=== PATIENT | female | born 1935 | race Caucasian/White ===

== ENCOUNTER 2018-10-15 17:55 | Inpatient (IN) | payer MEDICARE, OTHER ==
[~2018-10-15] VITALS: Ht 157.5 cm; Wt 43.9 kg
[~2018-10-15 17:55] MED LIST: NO HOME MEDICATIONS; ZITHROMAX 250M250 MG PO
[2018-10-15 18:58] LABS: BASO % 0.3 % (0.0-2.0); EOS % 0.1 % (0-4.0); GRAN # 8.6 (1.4-6.5); HEMOGLOBIN 11.9 g/dl (12.5-16.0); LYMPH % 9.6 % (20.0-51.0); MEAN CELL VOLUME 93 fl (80.0-100.0); MEAN CORPUSCULAR HEMOGLOBIN 32 pg (27.0-31.0); MEAN CORPUSCULAR HGB CONC 34 g/dl (33.0-37.0); MEAN PLATELET VOLUME 9.6 fl (7.4-10.4); MONO # 0.7 (0.1-0.6); MONO % 7.1 % (1.7-9.3); PLATELET COUNT 349 K/mm3 (130-400); RED BLOOD COUNT 3.78 M/mm3 (4.10-5.30); REDCELL DISTRIBUTION WIDTH-CV 12.4 % (11.5-14.5)
[2018-10-15 19:05] LABS: HEMATOCRIT 35.3 % (37.0-47.0)
[2018-10-15 19:08] LABS: ALBUMIN 3.2 gm/dL (3.5-5.0); BILIRUBIN,TOTAL 0.9 mg/dL (0.0-1.0); CALCIUM 8.8 mg/dL (8.4-10.2); CREATININE, serum 0.6 mg/dL (0.52-1.25); PHOSPHOROUS 2.4 mg/dL (2.5-4.5); POTASSIUM 4.3 mmol/L (3.4-5.0); TOTAL PROTEIN 6.6 gm/dL (6.4-8.2)
[2018-10-15 22:12] VITALS: BP 106/59; PULSE 90; TEMP 97.7
--- NOTE | 2018-10-15 23:46 | NUR ---
PT IS COMBATIVE WHILE PRVIDING PT CARE. FAMILY MEMBERS HELP WITH CARE. NO PAIN NOTED. NO NEEDS AT THIS TIME. CALL LIGHT IN REACH. BED ALARM ON.
--- NOTE | 2018-10-15 23:55 | NUR ---
PT RESTING IN BED A+OX4. NO PAIN. SHIFT ASSESSMENT COMEPLE. NO SOA. NO NEEDS AT THIS TIME. REPORT GIVEN TO JANUSZ MIRANDA
[2018-10-16 00:13] VITALS: BP 96/38; PULSE 92; TEMP 97.8
--- NOTE | 2018-10-16 00:30 | NUR ---
Patient report received from JANUSZ Young. Patient seen resting comfortably in bed. No needs observed at this time.
[2018-10-16 01:56] LABS: COLLECTION METHOD CLEAN CATCH
[2018-10-16 03:28] LABS: MUCOUS Present /lpf; PH 7 (5-8); SQUAMOUS EPITHELIAL 0-2 /hpf; URINE APPEARANCE Clear; URINE BACTERIA Rare /hpf; URINE BILIRUBIN Negative (NEGATIVE); URINE BLOOD Negative (NEGATIVE); URINE COLOR Straw; URINE GLUCOSE Negative (NEGATIVE); URINE KETONE Negative (NEGATIVE); URINE LEUKOCYTE ESTERASE Negative (NEGATIVE); URINE NITRATE Negative (NEGATIVE); URINE PROTEIN(semi-quant) Negative (NEGATIVE); URINE RBC 0-2 /hpf; URINE UROBILINOGEN Negative (NEGATIVE)
[2018-10-16 05:07] VITALS: BP 102/48; PULSE 82; TEMP 97.2
[2018-10-16 06:16] LABS: BASO % 0.2 % (0.0-2.0); EOS % 0.4 % (0-4.0); GRAN # 6.1 (1.4-6.5); GRAN % 73.4 % (42.2-75.2); HEMOGLOBIN 11.7 g/dl (12.5-16.0); LYMPH # 1.6 (1.2-3.4); LYMPH % 18.9 % (20.0-51.0); MEAN CELL VOLUME 94 fl (80.0-100.0); MEAN CORPUSCULAR HEMOGLOBIN 31 pg (27.0-31.0); MEAN CORPUSCULAR HGB CONC 33 g/dl (33.0-37.0); MEAN PLATELET VOLUME 9.6 fl (7.4-10.4); MONO # 0.5 (0.1-0.6); MONO % 6.5 % (1.7-9.3); PLATELET COUNT 357 K/mm3 (130-400); RED BLOOD COUNT 3.79 M/mm3 (4.10-5.30); REDCELL DISTRIBUTION WIDTH-CV 12.5 % (11.5-14.5)
[2018-10-16 06:21] LABS: CALCIUM 8.4 mg/dL (8.4-10.2); CHOLESTEROL RISK RATIO 3.6; CREATININE, serum 0.52 mg/dL (0.52-1.25); POTASSIUM 3.9 mmol/L (3.4-5.0)
[2018-10-16 06:24] LABS: HEMATOCRIT 35.7 % (37.0-47.0)
[2018-10-16 07:29] VITALS: BP 108/50; PULSE 86; TEMP 97.9
--- NOTE | 2018-10-16 11:00 | NUR ---
Patient has been sleeping most the monrning. She has a cough but it is dry. No sputum sample obtained. She is weak and needs some help getting out of bed. She is forgetful and needs several reminders. Denies pain or nausea. Explained several times the free water restriction but needs reminders. Explained she can do gatorade instead of juice because she did not want anymore juice. No other changes at this time. Call light within reach. Daughter is at bedside.
[2018-10-16 11:49] VITALS: BP 100/64; PULSE 85; TEMP 98
[2018-10-16 16:00] VITALS: BP 102/50; PULSE 102; TEMP 98
--- NOTE | 2018-10-16 18:52 | NUR ---
Patient has been doing well this afternoon. Her daughter stayed with her most the day. She has been helping her order meals. Patient is hoping to go home tomorrow. Explained that she has been doing a lot better first. Continues to deny pain and nausea. no other changes at this time. Call light within reach.
[2018-10-16 20:49] VITALS: BP 131/58; PULSE 98; TEMP 98.6
[2018-10-17 04:39] VITALS: BP 115/63; PULSE 79; TEMP 97.5
--- NOTE | 2018-10-17 06:22 | NUR ---
UP WITH MINIMAL ASSIST. NO c/o N/V. PT DENIED NEED FOR PAIN MEDS. NO c/o DYSPNEA.
[2018-10-17 06:32] LABS: BASO % 0.4 % (0.0-2.0); EOS # 0.1 (0.0-0.7); GRAN # 5.1 (1.4-6.5); GRAN % 69.1 % (42.2-75.2); HEMOGLOBIN 10.8 g/dl (12.5-16.0); LYMPH # 1.6 (1.2-3.4); LYMPH % 21.8 % (20.0-51.0); MEAN CELL VOLUME 95 fl (80.0-100.0); MEAN CORPUSCULAR HEMOGLOBIN 31 pg (27.0-31.0); MEAN CORPUSCULAR HGB CONC 33 g/dl (33.0-37.0); MEAN PLATELET VOLUME 9.7 fl (7.4-10.4); MONO # 0.5 (0.1-0.6); PLATELET COUNT 329 K/mm3 (130-400); RED BLOOD COUNT 3.44 M/mm3 (4.10-5.30); REDCELL DISTRIBUTION WIDTH-CV 12.5 % (11.5-14.5)
[2018-10-17 06:34] LABS: HEMATOCRIT 32.5 % (37.0-47.0)
[2018-10-17 06:52] LABS: ALBUMIN 2.3 gm/dL (3.5-5.0); BILIRUBIN,TOTAL 0.4 mg/dL (0.0-1.0); CALCIUM 8.2 mg/dL (8.4-10.2); CREATININE, serum 0.48 mg/dL (0.52-1.25); MAGNESIUM 1.8 mg/dL (1.6-2.3); POTASSIUM 3.9 mmol/L (3.4-5.0); TOTAL PROTEIN 5.1 gm/dL (6.4-8.2)
[2018-10-17 08:35] VITALS: BP 111/50; PULSE 91; TEMP 98.1
--- NOTE | 2018-10-17 09:09 | NUR ---
Patient alert and oriented, answers questions appropriately. See assessment. Lungs decreased in bases, clear in upper lobes. No cough/SOA. Inquires about discharge. States "My daughter says I can't go home, but I'm fine to go home. My daughter don't know what she is talking about". Advised patient to visit with physicians about potential discharge.
--- NOTE | 2018-10-17 11:03 | NUR ---
Initial visit; Patient thanked Poultry Dressing Worker for looking in on her and offering empathy, and keeping her in Poultry Dressing Worker's prayers.
--- NOTE | 2018-10-17 11:56 | NUR ---
SW student attended clinical rounds and followed up with patient to discuss discharge plan. Patient lives in [place] with her (Robb) and 15 year-old adoptive daughter (Sahara). Patient's is staying at [facility] currently until November and then possibly long-term. The patient does not use any DME and reports independence with ADLs. The patient receives primary care services at [facility] and believes she has seen Dr. Frank in the past but was not completely sure. The patient receives her medications from [facility] and reports no difficulties obtaining her medications. The patient has an outdated DPOA-HC completed that designates a friend (Gracia Child) but is in the process of completing an updated DPOA-HC. The patient wishes to return home but per PT/OT recommendations, may need a short SNF stay or home health. PT/OT has been ordered and hospitalist will follow up this afternoon. SW to continue to follow.
[2018-10-17 12:03] VITALS: BP 136/56; PULSE 89; TEMP 97.2
--- NOTE | 2018-10-17 14:48 | NUR ---
PT and OT have recommended patient go home with HH. TOM and TOM student met with patient and her daughter to discuss these options. Patient does not feel she needs HH but will talk with her daughter about options. TOM provided the medicare.gov HH sheet and discussed exactly what HH would provide for her. SW will check with patient after she is able to discuss with daughter.
[2018-10-17] MEDS ORDERED: OMNICEF 300MG300 MG PO (15:01)
[2018-10-17] MEDS ORDERED: ZITHROMAX500 M2 PO (15:01)
--- NOTE | 2018-10-17 15:55 | NUR ---
TOM lima met with the patient and patient's daughter to follow up about the option of Home Health Agencies. The patient was agreeable to start Home Health services with PT/OT/Skilled. After reviewing the Medicare.gov sheet of HH agencies, the patient has chosen [facility]. TOM lima left a VM for Ethan at [facility] and faxed the referral.
--- NOTE | 2018-10-17 17:01 | NUR ---
Discharge instructions reviewed with patient and family, verbalized understanding. Discharged via wheelchair to auto/home with family at 1700.
[2018-10-18 01:14] LABS: MYCOPLASMA IGM ANTIBODIES 0.18 (0.00-0.90)
--- NOTE | 2018-10-18 09:35 | NUR ---
Ethan, from [facility], contacted student to notify that they received the referral and have accepted the patient. [facility] will be in contact with patient to start services. Patient discharged 10/17 back home with family and HH services through [facility]. No additional needs.
== END 2018-10-17 17:00 | disposition home health service (06) | DRG 194 ==
LOC: COL.ER 17:55 → SURG 20:06 → COL.ER 20:32 → SURG 20:32
PROVIDERS: Emergency Medicine; Nurse Practitioner; ADMIT Family Medicine
DX: J18.1 Lobar pneumonia, unspecified organism (principal); E87.1 Hypo-osmolality and hyponatremia; E44.0 Moderate protein-calorie malnutrition; Z68.1 Body mass index [BMI] 19.9 or less, adult; Z23 Encounter for immunization; Z87.891 Personal history of nicotine dependence
CPT/HCPCS: 99222-AI; A4216; J0456; J0696; J7030; J7050

== ENCOUNTER 2020-07-06 10:49 | Emergency (ER) | payer MEDICARE ==
[~2020-07-06] VITALS: Ht 157.5 cm; Wt 43.2 kg
[~2020-07-06 10:49] MED LIST changes: +OMNICEF 300MG300 MG PO; +ZITHROMAX500 M2 PO
[2020-07-06 10:55] VITALS: BP 114/71; TEMP 98.4
[2020-07-06 11:47] LABS: BASO % 0.4 % (0.0-2.0); EOS # 0.1 (0.0-0.7); EOS % 1.2 % (0-4.0); GRAN # 5.4 (1.4-6.5); GRAN % 75.2 % (42.2-75.2); HEMATOCRIT 37.5 % (37.0-47.0); HEMOGLOBIN 12.5 g/dl (12.5-16.0); LYMPH # 0.8 (1.2-3.4); LYMPH % 11.4 % (20.0-51.0); MEAN CELL VOLUME 93 fl (80.0-100.0); MEAN CORPUSCULAR HEMOGLOBIN 31 pg (27.0-31.0); MEAN CORPUSCULAR HGB CONC 33 g/dl (33.0-37.0); MEAN PLATELET VOLUME 9.5 fl (7.4-10.4); MONO # 0.8 (0.1-0.6); MONO % 11.5 % (1.7-9.3); PLATELET COUNT 234 K/mm3 (130-400); RED BLOOD COUNT 4.03 M/mm3 (4.10-5.30); REDCELL DISTRIBUTION WIDTH-CV 13.2 % (11.5-14.5)
[2020-07-06 12:01] LABS: ALBUMIN 3.7 gm/dL (3.5-5.0); BILIRUBIN,TOTAL 0.8 mg/dL (0.0-1.0); C-REACTIVE PROTEIN 1.9 mg/dL (0.0-0.9); CALCIUM 9.2 mg/dL (8.4-10.2); CREATININE, serum 0.65 (0.52-1.25); POTASSIUM 4.2 mmol/L (3.4-5.0); TOTAL PROTEIN 6.8 gm/dL (6.4-8.2); URIC ACID 3.6 mg/dL (2.5-6.2)
[2020-07-06 12:27] LABS: COLLECTION METHOD CLEAN CATCH
[2020-07-06 12:51] LABS: ERYTHROCYTE SEDIMENTATION RATE 50 mm/hr (0-30)
[2020-07-06 13:04] LABS: MUCOUS Present /lpf; PH 6 (5-8); SQUAMOUS EPITHELIAL 0-2 /hpf; URINE APPEARANCE Hazy; URINE BACTERIA None Seen /hpf; URINE BILIRUBIN Negative (NEGATIVE); URINE BLOOD 1+ (NEGATIVE); URINE COLOR Yellow; URINE GLUCOSE Negative (NEGATIVE); URINE KETONE Trace (NEGATIVE); URINE LEUKOCYTE ESTERASE 1+ (NEGATIVE); URINE NITRATE Negative (NEGATIVE); URINE PROTEIN(semi-quant) Negative (NEGATIVE); URINE RBC 0-2 /hpf; URINE UROBILINOGEN Negative (NEGATIVE)
[2020-07-06] MEDS ORDERED: CEPHALEXIN500 M1 PO (13:15)
[2020-07-06 13:41] VITALS: PULSE 81
== END 2020-07-06 13:42 | disposition home or self-care (01) ==
LOC: COL.ER 10:49
PROVIDERS: Physician Assistant
DX: L03.012 Cellulitis of left finger (principal); L03.114 Cellulitis of left upper limb; N39.0 Urinary tract infection, site not specified; Z87.891 Personal history of nicotine dependence; Z90.49 Acquired absence of other specified parts of digestive tract; Z88.0 Allergy status to penicillin; Z88.1 Allergy status to other antibiotic agents